=== PATIENT | female | born 1965 | race Caucasian/White ===

== ENCOUNTER → 2018-09-18 09:36 | Day surgery (SDC) | payer OTHER ==
--- NOTE | ~2018-09-18 | OP ---
PATIENT NAME: RICKEY LLOYD MEDICAL RECORD: [id number] :61 LOCATION:D.[facility] ADMISSION DATE: SURGEON: MAUREEN CANALES MD DATE OF OPERATION: 09/18/2018 PROCEDURE: EGD with biopsy. PSYCHOLOGY LECTURER: Maureen Canales MD SCOPE: An Olympus video gastroscope. MEDICATIONS: Per TIVA anesthesia. The patient received 200 mg of propofol throughout this procedure, O2 4 liters. INDICATION FOR THE PROCEDURE: Nausea; vomiting; abdominal pain, generalized; and diarrhea. FINDINGS: Informed consent was given. The patient was made comfortable with the above medications. After reaching an adequate level of sedation by slow IV push, the patient was placed on her left side. The endoscope was then advanced under direct visualization through the posterior pharyngeal area and advanced to the distal esophagus. Some erosions were seen in this area and biopsies were obtained. The patient also had a nonstenotic Schatzki's ring as well as a small hiatal hernia seen both on direct and retroflex views. We then entered the gastric area and retroflexed. The cardia and fundus had mild inflammation. We then proceeded through the body of the stomach, which also had mild inflammation. At the antral area, 3 ulcerations were appreciated. The largest was at the 10 o'clock position at the entrance to the pylorus. It is not, however, in the pyloric channel. No visible vessels were seen and none of the ulcers were actively bleeding. Biopsies were taken. We then advanced the scope into the duodenal bulb to the second portion where only mild inflammation was appreciated, but due to the history of diarrhea, biopsies were taken within the second portion of the duodenum. The scope was then withdrawn. IMPRESSION: 1. Erosive distal esophagitis, biopsied. 2. Nonstenotic Schatzki's ring. 3. Small hiatal hernia. 4. Antral ulcerations. No visible vessels, not actively bleeding, but the largest was at the entrance to the pylorus. At the 10 o'clock position. Photo documentation was obtained. 5. Mild duodenitis, but due to the history of diarrhea, biopsies were taken. PLAN: 1. The patient is to follow reflux precautions stringently, both dietary and positional. No chocolate, tomato, citrus, caffeine, fatty foods, peppermint. The patient should not eat late at night, sit up for a couple hours after every meal and sleep with the head of the bed elevated. 2. She will require another EGD in 8 weeks to document healing of ulcers. 3. Omeprazole 20 mg p.o. q.a.m. and Zantac 300 mg p.o. q.h.s. 4. No anti-inflammatory drugs. 5. The patient should stop smoking and should get on a tobacco cessation program. 6. Return to clinic on a p.r.n. basis. OPERATIVE REPORT [id number] RICKEY LLOYD TRANSINT:[id number] Voice Confirmation ID: [id number] DOCUMENT ID: [id number] MAUREEN CANALES MD at 1304 CC: SLOAN SANTOS V [id number] DICTATION DATE: 09/18/18 1309 SENIOR COGNOS DEVELOPER: 09/18/18 1325 [facility] 09/18/18 [facility] [address] [place] [address]
[~2018-09-18 09:36] MED LIST: BAYER CHEWABLE81 MG PO; BIRTH CONTROL; COREG 3.1253.125 MG PO; COZAAR25 MG PO; CRANBERRY TAB PO; EFFEXOR XR150 MG; PRAVACHOL20 MG PO; SYNTHROID125 MCG PO; VITAMIN B-12500 MC1 PO; VITAMIN B650 MG PO; VITAMIN D31000 UNI2 PO; VITAMIN E1000 UNI1 PO; ZANTAC300 MG PO
[2018-09-18 10:38] LABS: HEMATOCRIT 40.3 % (36.0-48.0); MCH 34.4 pg (26.0-34.0); MCHC 34.7 g/dL (31.0-37.0); MEAN PLATELET VOLUME 10.6 fL (7.4-10.4); RBC 4.07 10x6/uL (4.00-5.40); RDW 13.1 % (11.5-14.5); WBC 8.1 10x3/uL (4.8-10.8)
== END | disposition home or self-care (01) ==
LOC: D.OPS 09:36
PROVIDERS: Anesthesiology
DX: K22.10 Ulcer of esophagus without bleeding (principal); K44.9 Diaphragmatic hernia without obstruction or gangrene; K25.9 Gastric ulcer, unspecified as acute or chronic, without hemorrhage or perforation

== ENCOUNTER 2018-09-23 10:52 | Day surgery (SDC) | payer OTHER ==
[~2018-09-23] VITALS: Ht 170.2 cm; Wt 69.5 kg
--- NOTE | ~2018-09-23 | OP ---
PATIENT NAME: RICKEY LLOYD MEDICAL RECORD: [id number] :61 LOCATION:D.[facility] ADMISSION DATE: SURGEON: MAUREEN PERERA MD DATE OF OPERATION: 09/23/2018 PROCEDURE: Colonoscopy with stool collection, colonoscopy with biopsy, colonoscopy with snare polypectomy. ENDOSCOPIST: Maureen Perera MD, gastroenterology SCOPE: Olympus video colonoscope. MEDICATIONS: Per TIVA. The patient received 620 mg of propofol throughout this procedure, O2 at 4 liters. INDICATION FOR THE PROCEDURE: 1. Positive family history of colon cancer in the patient's mother and maternal grandmother. 2. Change in bowel pattern with diarrhea. 3. Generalized abdominal pain. FINDINGS: Informed consent was given. The patient was made comfortable with the above medications. After reaching an adequate level of sedation by slow IV push, the patient was placed on her left side. The rectal exam revealed good sphincter tone. No fissures or fistulas were appreciated. No external skin tags were seen. The colonoscope was advanced to the cecum, where ileocecal valve and appendiceal orifice were identified. The prep was fair throughout. The patient also had adhesions adding to the difficulty of this procedure. She has had a colon resection in 2014, cause unknown, performed by Dr. Valdovinos. Also had appendectomy, cholecystectomy, splenectomy, and hysterectomy. She will have a colonoscopy on this date. FINDINGS: Informed consent was given. The patient was made comfortable with the above medications, and after reaching an adequate level of sedation by slow IV push, the patient was placed on her left side. The scope was advanced to the cecum, where the ileocecal valve and the appendiceal orifice were identified. On withdrawal of the scope, mucosa was carefully inspected. Colon mucosa was normal throughout, but we did take some random biopsies within the right colon, looking for microscopic colitis. On additional withdrawal of the scope, few scattered diverticula were seen throughout the colon. No evidence of diverticulitis, but some of the diverticula were impacted with hard stool. At 40 cm within the colon, in the descending colon, a 1.5-cm polyp was seen, which was pedunculated and this was removed with a snare. The patient did not have any bleeding after this polypectomy. The scope continued to be withdrawn, and within the rectal vault, internal hemorrhoids were appreciated to a mild degree. IMPRESSION: 1. Colonoscope advanced to the cecum where the ileocecal valve and the appendiceal orifice were identified. 2. Fair prep. Some stool was retained within the colon, which was quickly suctioned. Stool was sent for parasites, bacteria, and viruses as the patient has diarrhea. 3. No evidence of colitis, but biopsies were taken in the right colon looking OPERATIVE REPORT [id number] RICKEY LLOYD for microscopic colitis, that is eosinophilic gastroenteritis, lymphocytic colitis, or collagenous colitis. 4. Very mild left-sided diverticulosis without diverticulitis. Some diverticula; however, were impacted with hard stool. 5. Within the descending colon at 45 cm, a 1.5-cm polyp was seen and removed with a snare. This was pedunculated and completely removed. 6. Internal hemorrhoids. 7. Adhesions adding to the difficulty of this procedure. 8. Spasm on the left side of the colon, consistent with irritable bowel syndrome. PLAN: 1. Caution with anti-inflammatory drugs as they can cause a collagenous colitis, specifically no nonsteroidal anti-inflammatory drugs for 14 days as we did biopsy this colon and removed a polyp. 2. Check the path report. 3. High-fiber diet. 4. Probiotics. 5. Rkix-row-iftzytu Imodium p.r.n., no more than 8 a day for diarrhea. 6. The patient is to keep diary of foods which seem to precipitate diarrhea. 7. No caffeine. 8. Questran 4 grams p.o. b.i.d. for diarrhea, not to be taken within one hour of other medications. TRANSINT:[id number] Voice Confirmation ID: [id number] DOCUMENT ID: [id number] MAUREEN PERERA MD CC: SLOAN SANTOS V [id number] DICTATION DATE: 09/23/18 1343 BUSINESS DEVELOPMENT COORDINATOR: 09/23/18 1452 [facility] 09/23/18 [facility] [address] [place] [id number]
[~2018-09-23 10:52] MED LIST changes: -CRANBERRY TAB PO; -VITAMIN B-12500 MC1 PO; -VITAMIN B650 MG PO; -VITAMIN D31000 UNI2 PO; -VITAMIN E1000 UNI1 PO
[2018-09-23 11:23] LABS: BASOPHILS 0.5 % (0-2); EOSINOPHILS 1.6 % (0-7); HEMATOCRIT 39.7 % (36.0-48.0); IMMATURE GRANULOCYTES 0.1 % (0-5); LYMPHOCYTES 19.5 % (15-50); MCH 34.7 pg (26.0-34.0); MCHC 35.3 g/dL (31.0-37.0); MCV 98.3 fL (80.0-100.0); MEAN PLATELET VOLUME 9.7 fL (7.4-10.4); MONOCYTES 4.5 % (2-11); NEUTROPHILS 73.8 % (40-80); PLATELET COUNT 440 10x3/uL (130-400); RBC 4.04 10x6/uL (4.00-5.40); RDW 13.2 % (11.5-14.5); WBC 8.5 10x3/uL (4.8-10.8)
[2018-09-23 11:30] LABS: ANION GAP 10.6 mmol/L (8-16); CALCIUM 9.1 mg/dL (8.5-10.1); CARBON DIOXIDE 32.9 mmol/L (21.0-32.0); CREATININE - SERUM 0.9 mg/dL (0.6-1.3); POTASSIUM - SERUM 3.5 mmol/L (3.5-5.1)
[2018-09-23 11:39] LABS: APTT 30.3 SECONDS (22.8-39.4); INR 0.94 (0.85-1.17); PROTIME 12.2 SECONDS (11.6-15.0)
[2018-09-23] MEDS ORDERED: VITAMIN B-12500 MC1 PO (12:11)
[2018-09-23] MEDS ORDERED: VITAMIN E1000 UNI1 PO (12:11)
[2018-09-23] MEDS ORDERED: VITAMIN D31000 UNI2 PO (12:11)
[2018-09-23] MEDS ORDERED: VITAMIN B650 MG PO (12:12)
[2018-09-23] MEDS ORDERED: CRANBERRY TAB PO (12:12)
[2018-09-23 12:22] VITALS: BP 147/76; Ht 170.2 cm; Wt 69.5 kg
== END 2018-09-23 15:15 | disposition home or self-care (01) ==
LOC: D.OPS 10:52
PROVIDERS: Anesthesiology
DX: K57.30 Diverticulosis of large intestine without perforation or abscess without bleeding (principal); K63.5 Polyp of colon; K64.8 Other hemorrhoids; K58.0 Irritable bowel syndrome with diarrhea; Z01.812 Encounter for preprocedural laboratory examination; Z80.0 Family history of malignant neoplasm of digestive organs

== ENCOUNTER 2018-10-28 13:50 | Day surgery (SDC) | payer OTHER ==
[~2018-10-28] VITALS: Ht 170.2 cm; Wt 81.8 kg
--- NOTE | ~2018-10-28 | OP ---
PATIENT NAME: RICKEY LLOYD MEDICAL RECORD: [id number] :61 LOCATION:D.[facility] ADMISSION DATE: SURGEON: MAUREEN PERERA MD DATE OF OPERATION: 10/28/2018 PROCEDURE: EGD with biopsy. MORTGAGE PROCESSING MANAGER: Maureen Perera MD SCOPE: Olympus video gastroscope. MEDICATIONS: Per TIVA anesthesia. The patient received 140 mg of propofol for this procedure, O2 at 4 liters. INDICATION FOR THE PROCEDURE: To document healing of previously documented gastric ulcers 8 weeks ago. FINDINGS: Informed consent was given. The patient was made comfortable with the above medications. After reaching an adequate level of sedation by slow IV push, the patient was placed on her left side. The endoscope was then advanced under direct visualization through the posterior pharyngeal area and advanced to the distal esophagus. At the distal esophagus, erosions were noted. Some mild erythema and edema. Biopsies were obtained. The patient had a small hiatal hernia, which was seen both on direct and retroflex views. On entering the stomach and proceeding to the antral area, multiple ulcerations were noted with erythema and edema, no visible vessels, none were actively bleeding. Biopsies were obtained. The duodenal bulb had erosions, inflammation, erythema, and edema present. Biopsies were taken of this area. The second portion of the duodenum had mild inflammation present. The scope was then withdrawn. IMPRESSION: 1. Distal erosive esophagitis, biopsied. 2. Small hiatal hernia. 3. Nonstenotic Schatzki's ring. 4. Some mild inflammation in the cardia, body, and fundus. 5. Multiple ulcers without visible vessels and not actively bleeding at the antral area. Biopsies obtained. The patient shows no resolution from her previous EGD 8 weeks ago showing gastric ulcers in this area. 6. Erosive bulbar duodenitis, biopsied. 7. Mild duodenitis in the second part of the duodenum. PLAN: We will increase the omeprazole to 40 mg p.o. q.a.m., continue Zantac 300 mg p.o. at bedtime, and add Carafate 1 gram p.o. q.i.d. Caution with anti-inflammatory drugs. The patient is to follow reflux precautions stringently, both dietary and positional. Return to [facility] for repeat EGD in 8 weeks to document healing of ulcers in the gastric area. TRANSINT:[id number] Voice Confirmation ID: [id number] DOCUMENT ID: [id number] OPERATIVE REPORT [id number] RICKEY LLOYD BRENDA MD CC: NOEMI RODRIGUEZ MD and SLOAN SANTOS V [id number] DICTATION DATE: 10/28/181526 [employer]ACT[employer] INSTRUCTOR: 10/28/18 1742 [facility] [place] 10/28/18 [facility] [address] [place] [id number]
[~2018-10-28 13:50] MED LIST changes: +CRANBERRY TAB PO; +VITAMIN B-12500 MC1 PO; +VITAMIN B650 MG PO; +VITAMIN D31000 UNI2 PO; +VITAMIN E1000 UNI1 PO
[2018-10-28 13:59] LABS: HEMATOCRIT 38.8 % (36.0-48.0); HEMOGLOBIN 13.3 g/dL (12-16); MCH 34.4 pg (26.0-34.0); MCHC 34.3 g/dL (31.0-37.0); MCV 100.3 fL (80.0-100.0); MEAN PLATELET VOLUME 10.1 fL (7.4-10.4); RBC 3.87 10x6/uL (4.00-5.40); RDW 13.4 % (11.5-14.5)
[2018-10-28 14:15] VITALS: BP 134/93; Ht 170.2 cm; Wt 81.8 kg
== END 2018-10-28 16:00 | disposition home or self-care (01) ==
LOC: D.OPS 13:50
PROVIDERS: Anesthesiology
DX: K22.10 Ulcer of esophagus without bleeding (principal); K44.9 Diaphragmatic hernia without obstruction or gangrene; K22.2 Esophageal obstruction; K25.9 Gastric ulcer, unspecified as acute or chronic, without hemorrhage or perforation; K29.80 Duodenitis without bleeding; Z01.812 Encounter for preprocedural laboratory examination

== ENCOUNTER 2019-03-26 09:34 | Day surgery (SDC) | payer OTHER ==
[~2019-03-26] VITALS: Ht 170.2 cm; Wt 69.9 kg
--- NOTE | ~2019-03-26 | OP ---
PATIENT NAME: RICKEY LLOYD MEDICAL RECORD: [id number] :61 LOCATION:D.OPS ADMISSION DATE: SURGEON: MAUREEN PERERA MD DATE OF OPERATION: 03/26/2019 PROCEDURE: EGD with biopsy. MATRIX BATH OPERATOR: Maureen Perera MD SCOPE: Olympus video gastroscope. MEDICATIONS: Per TIVA anesthesia. The patient received 200 mg of propofol for this procedure, O2 of 4 liters. INDICATION FOR THE PROCEDURE: Multiple gastric ulcers. We are repeating the procedure two months after the initial test to determine if the multiple gastric ulcers, which were most pronounced in the antral area have healed. FINDINGS AND DESCRIPTION OF PROCEDURE: Informed consent was given. The patient was made comfortable with the above medications. After reaching an adequate level of sedation by slow IV push, the patient was placed on her left side. The endoscope was then advanced under direct visualization through the posterior pharyngeal area and advanced to the distal esophagus. At the distal esophageal area, very fizj-az-qaedesud inflammation was appreciated and biopsies were obtained. The patient had a small hiatal hernia, which was seen both on direct and retroflex views. On entering the stomach, multiple ulcerations were again noted within the antral area and biopsies were taken of the ulcer surround. The duodenal bulb had ulcerations, inflammation, erythema and edema. Biopsies were taken. The second part of the duodenum had erythema and some congestion and we also biopsied this area. All biopsies were sent to pathology for review. IMPRESSION: 1. Bmvc-rn-yvraidau distal esophagitis, biopsied. 2. Small hiatal hernia. 3. We did not see the presence of a stenotic Schatzki's ring. The area was very wide open and should not present a problem. 4. Mild inflammation noted in the cardia, body and fundus. 5. Multiple gastric ulcers at the antral area, biopsied. 6. Duodenal bulbar ulcers, biopsied. 7. Inflammation in the second part of the duodenum, biopsied. 8. No ulcerations, which were seen and documented had visible vessels, nor were they bleeding. PLAN: 1. The patient should continue her omeprazole at 40 mg p.o. every morning and Zantac 300 mg p.o. at bedtime. We will again suggest to the patient that she take her Carafate 1 g p.o. q.i.d. If she makes this into a slurry, I think she will tolerate it better. 2. Caution with anti-inflammatory drugs. 3. Stop tobacco products. 4. The patient should continue to follow reflux precautions, both dietary and positional. 5. Repeat EGD with TIVA in 8 weeks to document healing of all ulcerations. OPERATIVE REPORT [id number] RICKEY LLOYD TRANSINT:[id number] Voice Confirmation ID: [id number] DOCUMENT ID: [id number] MAUREEN PERERA MD CC: NOEMI RODRIGUEZ MD and SLOAN SANTOS V [id number] DICTATION DATE: 03/26/19 1230 DEPUTY TREASURER: 03/26/19 1325 [facility] 03/26/19 [facility] [address] [place] [address]
[2019-03-26 10:07] LABS: ANION GAP 12.6 mmol/L (8-16); CREATININE - SERUM 0.9 mg/dL (0.6-1.3); POTASSIUM - SERUM 3.6 mmol/L (3.5-5.1)
[2019-03-26 10:13] LABS: BASOPHILS 0.5 % (0-2); EOSINOPHILS 3.4 % (0-7); HEMATOCRIT 37.8 % (36.0-48.0); HEMOGLOBIN 13.1 g/dL (12-16); IMMATURE GRANULOCYTES 0.2 % (0-5); MCH 33.9 pg (26.0-34.0); MCHC 34.7 g/dL (31.0-37.0); MCV 97.9 fL (80.0-100.0); MEAN PLATELET VOLUME 10.3 fL (7.4-10.4); MONOCYTES 5.6 % (2-11); NEUTROPHILS 67.3 % (40-80); PLATELET COUNT 441 10x3/uL (130-400); RBC 3.86 10x6/uL (4.00-5.40); RDW 13.3 % (11.5-14.5); WBC 8.3 10x3/uL (4.8-10.8)
[2019-03-26 11:00] VITALS: BP 122/72; Ht 170.2 cm; Wt 69.9 kg
--- NOTE | 2019-03-26 12:40 | NUR ---
REC'D FROM GI LAB. DR CANALES IN WITH PATIENT. FAMILY/FRIEND AT BEDSIDE.
--- NOTE | 2019-03-26 13:10 | NUR ---
DID NOT WANT FL TRAY. RELATED WANTED ORANGE JUICE. JUICE BROUGHT TO PATIENT.
--- NOTE | 2019-03-26 13:40 | NUR ---
TOLERATED ORANGE JUICE. IV DC'D WITH CATHETER INTACT.
--- NOTE | 2019-03-26 13:55 | NUR ---
WRITTEN AND VERBAL DC INST. GIVEN TO PATIENT ALONG WITH FOLLOW UP FOR EGD IN 2 MONTHS. VERBALIZED UNDERSTANDING.
--- NOTE | 2019-03-26 14:05 | NUR ---
DC'D HOME WITH FAMILY/FRIEND VIA PRIVATE VEHICLE. TAKEN TO VEHICLE VIA WC. STABLE AT TIME OF DC.
== END 2019-03-26 14:05 | disposition home or self-care (01) ==
LOC: D.OPS 09:34
PROVIDERS: Anesthesiology; ATTEND Internal Medicine Gastroenterology
DX: K20.8 Other esophagitis (principal); K25.9 Gastric ulcer, unspecified as acute or chronic, without hemorrhage or perforation; K26.9 Duodenal ulcer, unspecified as acute or chronic, without hemorrhage or perforation; K29.80 Duodenitis without bleeding; K44.9 Diaphragmatic hernia without obstruction or gangrene; Z01.812 Encounter for preprocedural laboratory examination

== ENCOUNTER 2019-07-01 12:02 | Day surgery (SDC) | payer OTHER ==
[~2019-07-01] VITALS: Ht 170.2 cm; Wt 67.3 kg
[2019-07-01 12:24] LABS: HEMATOCRIT 34.6 % (36.0-48.0); HEMOGLOBIN 12.4 g/dL (12-16); MCH 34.8 pg (26.0-34.0); MCHC 35.8 g/dL (31.0-37.0); MCV 97.2 fL (80.0-100.0); MEAN PLATELET VOLUME 9.3 fL (7.4-10.4); RBC 3.56 10x6/uL (4.00-5.40); WBC 8.4 10x3/uL (4.8-10.8)
[2019-07-01] MEDS ORDERED: CARAFATE1 G PO (12:38)
[2019-07-01 12:43] VITALS: BP 123/73; Ht 170.2 cm; Wt 67.3 kg
--- NOTE | 2019-07-01 12:50 | NUR ---
AIR TRAFFIC CONTROL OPERATOR CALLED FOR SUICIDE SCREEN AT THIS TIME.
--- NOTE | 2019-07-01 13:18 | NUR ---
DR. BOOKER NOTIFIED AND REVIEWED PT'S BEHAVIOR AND ASSESSMENT RESULTS. PT IS A LOW RISK PER DR. ALVAREZ. DR. ALVAREZ STATED TO GIVE RESOURCES TO PT AT TIME OF DISCHARGE. NO FURTHER ORDERS AT THIS TIME. RESOURCES REVIEWED WITH PT AND SHE VERBALIZED UNDERSTANDING.
--- NOTE | 2019-07-02 17:25 | OP ---
PATIENT NAME: RICKEY LLOYD MEDICAL RECORD: [id number] :61 LOCATION:[facility] ADMISSION DATE: SURGEON: YONI ALTAMIRANO DO DATE OF OPERATION: 07/01/2019 PROCEDURE: EGD. INDICATION FOR PROCEDURE: History of Schatzki's esophageal ring, 8-week follow up for multiple gastric ulcers, esophagitis. SCOPE: Olympus video gastroscope. MEDICATIONS: Propofol 160 mg IV per anesthesia. ESTIMATED BLOOD LOSS: None. FINDINGS: Informed consent was given. The patient was made comfortable with the above medication. After reaching an adequate level of sedation by slow IV push, the patient was placed on her left side. The endoscope was advanced under direct visualization through the mouth to the second portion of the duodenum with ease. The entire esophagus appeared normal. At the GE junction, there were minor changes consistent with LA class A reflux-induced esophagitis. There was no Schatzki's ring or stricture located within the esophagus. The endoscope was advanced beyond the GE junction into the stomach and retroflexed to view the cardia, where a small sliding hiatal hernia was present. Throughout the distal fundus and proximal stomach body, there were patchy areas of erythema and congestion, consistent with gastritis. As the endoscope approached the antrum and the prepyloric region, there were few erosions scattered throughout the antrum, but no ulcerations present. Appearances were consistent with medication-induced erosions. The endoscope was advanced beyond the pylorus into the duodenum, which appeared normal down to the second portion. The endoscope was withdrawn from the patient. The patient tolerated the procedure well and there were no complications. IMPRESSIONS: 1. LA class A reflux-induced esophagitis. 2. Small sliding hiatal hernia. 3. Gastritis. 4. Few antral erosions, which I assume are improved from her last endoscopy where she was found to have multiple ulcers. PLAN AND RECOMMENDATIONS: 1. Discharge home when recovery parameters are met. 2. GERD diet and reflux precautions. 3. Continue current medications including her PPI and Carafate for another 8 weeks. After that time, consideration can be given to switch to an H2 jody or low-dose PPI indefinitely if needed. 4. Minimize NSAID use. 5. Follow up at GI clinic as needed. TRANSINT:[id number] Voice Confirmation ID: [id number] DOCUMENT ID: [id number] OPERATIVE REPORT [id number] RICKEY LLOYD,YONI Maddox DO at 1725 CC: [id number] DICTATION DATE: 07/01/19 1452 MENDER KNIT GOODS: 07/01/19 1548 [facility] 07/01/19 [place] [id number] [place] [id number]
== END 2019-07-01 15:45 | disposition home or self-care (01) ==
LOC: D.OPS 12:02
PROVIDERS: Anesthesiology; ATTEND Internal Medicine Gastroenterology
DX: K21.0 Gastro-esophageal reflux disease with esophagitis (principal); K44.9 Diaphragmatic hernia without obstruction or gangrene; K29.60 Other gastritis without bleeding; K25.9 Gastric ulcer, unspecified as acute or chronic, without hemorrhage or perforation; Z01.812 Encounter for preprocedural laboratory examination

== ENCOUNTER 2019-08-12 11:44 | Day surgery (SDC) | payer OTHER ==
[~2019-08-12] VITALS: Ht 170.2 cm; Wt 66.4 kg
[~2019-08-12 11:44] MED LIST changes: +CARAFATE1 G PO
[2019-08-12 12:11] LABS: HEMATOCRIT 36.3 % (36.0-48.0); HEMOGLOBIN 13.1 g/dL (12-16); MCH 35.4 pg (26.0-34.0); MCHC 36.1 g/dL (31.0-37.0); MCV 98.1 fL (80.0-100.0); MEAN PLATELET VOLUME 9.3 fL (7.4-10.4); RBC 3.7 10x6/uL (4.00-5.40); RDW 13.2 % (11.5-14.5)
[2019-08-12 13:00] VITALS: BP 97/54; Ht 170.2 cm; Wt 66.4 kg
--- NOTE | 2019-08-12 14:51 | NUR ---
1425 VOIDED AND PASSING GAS. TOLERATED FULL LIQ TRAY 1430 IV REMOVED AND INSTRUCTIONS GIVEN 1440 D/C HOME
--- NOTE | 2019-08-12 16:30 | OP ---
PATIENT NAME: RICKEY LLOYD MEDICAL RECORD: [id number] :61 LOCATION:D.OPS ADMISSION DATE: SURGEON: YONI ALTAMIRANO DO DATE OF OPERATION: 08/12/2019 PROCEDURE: Colonoscopy with polypectomy. INDICATIONS FOR PROCEDURE: Personal history of colon polyps, family history positive for colon cancer in the patient's mother and maternal grandmother, history of diverticulosis and internal hemorrhoids. SCOPE: Olympus video pediatric colonoscope. MEDICATIONS: Propofol 320 mg IV per anesthesia. WITHDRAWAL TIME: 16 minutes. ESTIMATED BLOOD LOSS: Minimal. COMPLICATIONS: None. FINDINGS AND DESCRIPTION OF PROCEDURE: Informed consent was given. The patient was made comfortable with the above medication. After reaching an adequate level of sedation by slow IV push, the patient was placed on her left side. A digital rectal examination was performed and it was normal. The endoscope was then advanced under direct visualization through the rectum to the cecum, confirmed by the presence of the appendiceal orifice and ileocecal valve. The endoscope was slowly withdrawn. Mucosa was carefully examined. The prep quality was fair. There were 3 polyps visualized on today's examination. The first was in the ascending colon. It was a benign appearing sessile polyp, which measured approximately 4-mm in diameter. It was removed using a hot snare in 1 piece and completely retrieved. In the sigmoid colon, there were two separate polyps, which were both benign appearing and sessile and ranged in size from 6-8 mm in diameter. They were both removed using a hot snare in 1 piece and completely retrieved. One of these polyps left a slight mucosal defect and it was felt that a small amount of the muscularis tissue could be visualized, so to prevent complications after discharge home. Two endoclips were placed successfully for tissue positioning. There were a few scattered diverticula throughout the entire colon. Evidence of prior intervention in the form of a surgical resection and anastomosis was visualized in the sigmoid colon. Retroflexion was performed in the rectum with visualization of a normal rectal wall. The endoscope was then withdrawn from the patient. The patient tolerated the procedure well and there were no complications. IMPRESSION: 1. Three polyps as described above, removed using a hot snare. 2. Evidence of prior intervention. 3. Mild diverticulosis scattered throughout the colon. PLAN AND RECOMMENDATIONS: 1. Discharge home when recovery parameters are met. 2. Follow up biopsy specimen results. 3. High fiber diet. 4. Continue current medications. 5. Recall colonoscopy in 2-3 years for ongoing surveillance based on personal OPERATIVE REPORT [id number] GABINORICKEY S history of polyps and strong family history of colon cancer. TRANSINT:[id number] Voice Confirmation ID: [id number] DOCUMENT ID: [id number] YONI ALTAMIRANO DO at 1630 CC: [id number] DICTATION DATE: 08/12/19 1405 ARMATURE WINDER REPAIRER: 08/12/19 1459 [facility] 08/12/[address] [facility] [address] [place] [address]
== END 2019-08-12 14:40 | disposition home or self-care (01) ==
LOC: D.OPS 11:44
PROVIDERS: Anesthesiology; ATTEND Internal Medicine Gastroenterology
DX: K63.5 Polyp of colon (principal); K57.90 Diverticulosis of intestine, part unspecified, without perforation or abscess without bleeding; Z86.010 Personal history of colon polyps